=== PATIENT | female | born 1990 | race Caucasian/White ===

== ENCOUNTER 2017-01-08 21:21 | Emergency (ER) | payer OTHER ==
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
[2017-01-08] MEDS ORDERED: VALACYCLOVIR HCL 500 MG TABLET PO ONE (23:02)
[2017-01-08 23:17] VITALS: BP 127/65
== END 2017-01-08 23:14 | disposition home or self-care (01) ==
LOC: ER 21:21
DX: A60.00 Herpesviral infection of urogenital system, unspecified (principal); J02.9 Acute pharyngitis, unspecified; R50.9 Fever, unspecified
CPT/HCPCS: 87070; 87880; 99283